=== PATIENT | male | born 1940 | race Hispanic/Latino ===

== ENCOUNTER 2021-10-28 14:18 | Inpatient (IN) | payer MEDICARE ==
[~2021-10-28] VITALS: Ht 172.7 cm; Wt 88.0 kg
[~2021-10-28 14:18] MED LIST: CIPRO500 MG PO; LOMOTIL TABLET1 EACH PO; METRONIDAZOLE500 MG PO
[2021-10-28] MEDS ORDERED: SODIUM CHLORIDE 0.9% 1000ML 1,000 ML IV STA (14:41)
[2021-10-28] MEDS ORDERED: SODIUM CHLORIDE 0.9% 1000ML 1,000 ML ONE (15:27)
[2021-10-28] MEDS ORDERED: ZOLPIDEM TARTRATE 5 MG TAB PO PRN (16:15)
[2021-10-28] MEDS ORDERED: DIPHENHYDRAMINE HCL INJ 50 MG/ML VIAL IV PRN (16:15)
[2021-10-28] MEDS ORDERED: CLONIDINE HCL 0.1 MG TAB PO PRN (16:15)
[2021-10-28] MEDS ORDERED: ACETAMINOPHEN 325 MG TAB PO PRN (16:15)
[2021-10-28] MEDS ORDERED: HYDRALAZINE HCL 20 MG/ML VIAL IV PRN (16:15)
[2021-10-28 17:06] VITALS: BP 188/80
[2021-10-28] MEDS: FAMOTIDINE 20 MG TAB PO SCH (17:53)
[2021-10-28] MEDS: SODIUM CHLORIDE 0.9% 1000ML 1,000 ML IV SCH (17:53)
[2021-10-28] MEDS ORDERED: TRAZODONE HCL50 MG PO ×2 (18:28→20:13)
[2021-10-28] MEDS ORDERED: NITROGLYCERIN0.4 MG SL ×2 (18:28→20:13)
[2021-10-28] MEDS ORDERED: CLOPIDOGREL75 MG PO ×2 (18:28→20:13)
[2021-10-28] MEDS ORDERED: NEXIUM40 MG PO ×2 (18:28→20:13)
[2021-10-28] MEDS ORDERED: [UNRECOGNIZED DRUG - OTHER] PO (18:28)
[2021-10-28] MEDS ORDERED: CRESTOR10 MG PO ×2 (18:28→20:13)
[2021-10-28] MEDS ORDERED: TROSPIUM CHLORI60 MG PO (18:28)
[2021-10-28] MEDS ORDERED: AMLODIPINE BESY10 MG PO ×2 (18:28→20:13)
[2021-10-28 19:30] VITALS: BP 144/67
[2021-10-28] MEDS ORDERED: METRONIDAZOLE500 MG PO (20:13)
[2021-10-28] MEDS ORDERED: TROSPIUM CHLORI60 MG (20:13)
[2021-10-28] MEDS ORDERED: ARICEPT5 MG PO (20:13)
[2021-10-28] MEDS ORDERED: CIPRO500 MG PO (20:13)
[2021-10-28] MEDS ORDERED: DIPHENOXYLATE-1 EACH PO (20:13)
[2021-10-28] MEDS: METRONIDAZOLE 500MG/NS 100ML 100 ML IV SCH (21:14)
[2021-10-28 23:42] VITALS: BP 144/67
[2021-10-29] VITALS (7 sets, daily range): BP systolic 135–149; BP diastolic 64–81
[2021-10-29] MEDS: SODIUM CHLORIDE 0.9% 1000ML 1,000 ML IV SCH ×2 (01:15→09:04)
[2021-10-29] MEDS: METRONIDAZOLE 500MG/NS 100ML 100 ML IV SCH ×3 (05:21→22:50)
[2021-10-29 07:10] LABS: BASOPHILS % 0.4 % (0.0-1.0); EOSINOPHILS # (AUTO) 0.3 (0.0-0.4); EOSINOPHILS % 3.6 % (0.0-6.0); HEMATOCRIT 42.5 % (38.2-49.6); HEMOGLOBIN 14.1 g/dL (14.0-18.0); LYMPHOCYTES # (AUTO) 1.3 (1.0-3.2); LYMPHOCYTES % 17.5 % (18.0-39.1); MEAN CORPUSCULAR HEMOGLOBIN 28.2 pg (28-32); MEAN CORPUSCULAR HGB CONC 33.2 g/dL (31-35); MONOCYTES # (AUTO) 0.7 (0.2-0.8); MONOCYTES % 9.9 % (4.4-11.3); NEUTROPHILS # (AUTO) 4.9 (2.1-6.9); NEUTROPHILS % 68.2 % (38.7-80.0); PLATELET COUNT 230 x10e3/uL (140-360); RED CELL DISTRIBUTION WIDTH 13.8 % (11.7-14.4)
[2021-10-29 07:41] LABS: ANION GAP 11.5 mmol/L (8-16); CALCIUM 7.7 mg/dL (8.4-10.2); CREATININE, SERUM 0.96 mg/dL (0.72-1.25); POTASSIUM 3.5 mmol/L (3.5-5.1)
[2021-10-29] MEDS: AMLODIPINE BESYLATE 10 MG TAB PO SCH (09:05)
[2021-10-29] MEDS: FAMOTIDINE 20 MG TAB PO SCH ×2 (09:05→16:54)
[2021-10-29] MEDS: SIMVASTATIN 20 MG TAB PO SCH (09:06)
[2021-10-29 17:38] LABS: MAGNESIUM 1.8 MG/DL (1.3-2.1); PHOSPHORUS 2.3 MG/DL (2.3-4.7)
[2021-10-29] MEDS ORDERED: POTASSIUM CHLORIDE 20 MEQ TAB CR PO ONE (17:45)
[2021-10-30] VITALS: BP 139/70
[2021-10-30 04:00] VITALS: BP 120/60
[2021-10-30] MEDS: METRONIDAZOLE 500MG/NS 100ML 100 ML IV SCH ×3 (05:39→21:32)
[2021-10-30 06:06] LABS: BASOPHILS % 0.3 % (0.0-1.0); EOSINOPHILS # (AUTO) 0.2 (0.0-0.4); EOSINOPHILS % 2.6 % (0.0-6.0); HEMATOCRIT 44.6 % (38.2-49.6); HEMOGLOBIN 14.8 g/dL (14.0-18.0); LYMPHOCYTES # (AUTO) 1.4 (1.0-3.2); LYMPHOCYTES % 15.4 % (18.0-39.1); MEAN CORPUSCULAR HGB CONC 33.2 g/dL (31-35); MEAN CORPUSCULAR VOLUME 84.3 fL (81-99); MONOCYTES # (AUTO) 0.8 (0.2-0.8); MONOCYTES % 9.1 % (4.4-11.3); NEUTROPHILS # (AUTO) 6.3 (2.1-6.9); NEUTROPHILS % 72.1 % (38.7-80.0); PLATELET COUNT 258 x10e3/uL (140-360); RED BLOOD COUNT 5.29 x10e6/uL (4.3-5.7); RED CELL DISTRIBUTION WIDTH 13.7 % (11.7-14.4)
[2021-10-30 06:46] LABS: ANION GAP 12.7 mmol/L (8-16); CALCIUM 8.2 mg/dL (8.4-10.2); CREATININE, SERUM 1.03 mg/dL (0.72-1.25); POTASSIUM 3.7 mmol/L (3.5-5.1)
[2021-10-30 08:57] VITALS: BP 117/81
[2021-10-30] MEDS: SIMVASTATIN 20 MG TAB PO SCH (09:20)
[2021-10-30] MEDS: AMLODIPINE BESYLATE 10 MG TAB PO SCH (09:22)
[2021-10-30] MEDS: FAMOTIDINE 20 MG TAB PO SCH ×2 (09:22→16:30)
[2021-10-30] MEDS ORDERED: D5.45%NS/KCL 20MEQ 1,000 ML IV ONE ×2 (11:15→17:30)
[2021-10-30 11:52] LABS: WBC,FECAL (FECAL LACTOFERRIN) POSITIVE (NEGATIVE)
[2021-10-30 12:26] VITALS: BP 151/68
[2021-10-30] MEDS ORDERED: NITROGLYCERIN 0.4 MG SUBL SL PRN (12:45)
[2021-10-30 17:54] VITALS: BP 150/73
[2021-10-30 20:00] VITALS: BP 115/72
[2021-10-30] MEDS: DONEPEZIL HCL 5 MG TAB PO SCH (21:32)
[2021-10-30] MEDS: TRAZODONE HCL 50 MG TAB PO SCH (21:32)
[2021-10-31] VITALS (9 sets, daily range): BP systolic 107–153; BP diastolic 43–72
[2021-10-31] MEDS ORDERED: DIPHENOXYLATE/ATROPINE TAB PO ONE (01:30)
[2021-10-31] MEDS: METRONIDAZOLE 500MG/NS 100ML 100 ML IV SCH ×3 (05:32→21:45)
[2021-10-31 05:39] LABS: BASOPHILS % 0.3 % (0.0-1.0); EOSINOPHILS # (AUTO) 0.3 (0.0-0.4); HEMATOCRIT 42.9 % (38.2-49.6); HEMOGLOBIN 14.2 g/dL (14.0-18.0); LYMPHOCYTES # (AUTO) 1.5 (1.0-3.2); LYMPHOCYTES % 16.6 % (18.0-39.1); MEAN CORPUSCULAR HEMOGLOBIN 27.7 pg (28-32); MEAN CORPUSCULAR HGB CONC 33.1 g/dL (31-35); MEAN CORPUSCULAR VOLUME 83.8 fL (81-99); MONOCYTES # (AUTO) 0.8 (0.2-0.8); NEUTROPHILS # (AUTO) 6.4 (2.1-6.9); NEUTROPHILS % 70.8 % (38.7-80.0); PLATELET COUNT 237 x10e3/uL (140-360); RED BLOOD COUNT 5.12 x10e6/uL (4.3-5.7); RED CELL DISTRIBUTION WIDTH 13.7 % (11.7-14.4)
[2021-10-31 06:02] LABS: ALBUMIN 3.1 g/dL (3.5-5.0); ANION GAP 10.4 mmol/L (8-16); CALCIUM 7.7 mg/dL (8.4-10.2); CREATININE, SERUM 0.89 mg/dL (0.72-1.25); MAGNESIUM 1.9 MG/DL (1.3-2.1); PHOSPHORUS 3.2 MG/DL (2.3-4.7); POTASSIUM 3.4 mmol/L (3.5-5.1)
[2021-10-31] MEDS: FAMOTIDINE 20 MG TAB PO SCH ×2 (07:15→16:20)
[2021-10-31] MEDS: TROSPIUM CHLORIDE PO SCH (09:21)
[2021-10-31] MEDS: AMLODIPINE BESYLATE 10 MG TAB PO SCH (09:21)
[2021-10-31] MEDS: ONDANSETRON HCL INJ 2MG/ML 2ML 2 MG/ML VIAL IV PRN (10:05)
[2021-10-31] MEDS ORDERED: CALCIUM GLUC 1 G/50 ML NACL 50 ML IV ONE (13:00)
[2021-10-31] MEDS ORDERED: POTASSIUM CHLORIDE 20 MEQ TAB CR PO ONE (13:00)
[2021-10-31] MEDS: DONEPEZIL HCL 5 MG TAB PO SCH (21:45)
[2021-10-31] MEDS: TRAZODONE HCL 50 MG TAB PO SCH (21:45)
[2021-10-31] MEDS: SIMVASTATIN 20 MG TAB PO SCH (21:45)
[2021-10-31] MEDS ORDERED: BISACODYL 5 MG TAB EC PO ONE (23:45)
[2021-11-01] VITALS (8 sets, daily range): BP systolic 101–151; BP diastolic 55–81
[2021-11-01] MEDS ORDERED: BISACODYL 5 MG TAB EC PO ONE (00:15)
[2021-11-01] MEDS ORDERED: CITRATE OF MAGNESIA 300ML BOTTLE PO ONE ×2 (01:15→07:00)
[2021-11-01 05:45] LABS: BASOPHILS % 0.3 % (0.0-1.0); EOSINOPHILS # (AUTO) 0.2 (0.0-0.4); EOSINOPHILS % 2.4 % (0.0-6.0); HEMATOCRIT 44.4 % (38.2-49.6); HEMOGLOBIN 14.2 g/dL (14.0-18.0); LYMPHOCYTES # (AUTO) 1.3 (1.0-3.2); LYMPHOCYTES % 14.1 % (18.0-39.1); MEAN CORPUSCULAR HEMOGLOBIN 27.9 pg (28-32); MEAN CORPUSCULAR VOLUME 87.2 fL (81-99); MONOCYTES # (AUTO) 0.8 (0.2-0.8); MONOCYTES % 8.1 % (4.4-11.3); NEUTROPHILS # (AUTO) 6.9 (2.1-6.9); NEUTROPHILS % 74.5 % (38.7-80.0); PLATELET COUNT 245 x10e3/uL (140-360); RED BLOOD COUNT 5.09 x10e6/uL (4.3-5.7); RED CELL DISTRIBUTION WIDTH 13.8 % (11.7-14.4)
[2021-11-01] MEDS: METRONIDAZOLE 500MG/NS 100ML 100 ML IV SCH ×3 (06:21→21:35)
[2021-11-01 06:22] LABS: ANION GAP 8.6 mmol/L (8-16); CALCIUM 8.6 mg/dL (8.4-10.2); CREATININE, SERUM 1.01 mg/dL (0.72-1.25); POTASSIUM 3.6 mmol/L (3.5-5.1)
[2021-11-01] MEDS: FAMOTIDINE 20 MG TAB PO SCH ×2 (09:16→16:30)
[2021-11-01] MEDS: AMLODIPINE BESYLATE 10 MG TAB PO SCH (09:17)
[2021-11-01] MEDS: ONDANSETRON HCL INJ 2MG/ML 2ML 2 MG/ML VIAL IV PRN (09:27)
[2021-11-01] MEDS: TROSPIUM CHLORIDE PO SCH (11:53)
[2021-11-01] MEDS ORDERED: FENTANYL CITRATE/PF 100MCG/2 ML INJ ONE (13:23)
[2021-11-01] MEDS ORDERED: HYOSCYAMINE SULFATE 0.5 MG/ML INJ ONE (13:42)
[2021-11-01] MEDS ORDERED: LIDOCAINE HCL 2% LOCAL INJ 5 ML SDV VIAL INJ ONE (13:42)
[2021-11-01] MEDS ORDERED: PROPOFOL IV EMULSION 10 MG/ML 20 ML VIAL ONE (13:42)
[2021-11-01] MEDS: SODIUM CHLORIDE 0.9% 1000ML 1,000 ML IV SCH (17:09)
[2021-11-01 19:07] LABS: WBC,FECAL (FECAL LACTOFERRIN) POSITIVE (NEGATIVE)
[2021-11-01] MEDS ORDERED: CHOLESTYRAMINE 4 GM PACKET PO SCH (19:30)
[2021-11-01] MEDS: SIMVASTATIN 20 MG TAB PO SCH (21:35)
[2021-11-01] MEDS: TRAZODONE HCL 50 MG TAB PO SCH (21:35)
[2021-11-01] MEDS: DONEPEZIL HCL 5 MG TAB PO SCH (21:35)
[2021-11-02] VITALS (8 sets, daily range): BP systolic 102–142; BP diastolic 59–82
[2021-11-02] MEDS: SODIUM CHLORIDE 0.9% 1000ML 1,000 ML IV SCH ×3 (05:22→21:05)
[2021-11-02] MEDS: METRONIDAZOLE 500MG/NS 100ML 100 ML IV SCH ×2 (05:23→13:55)
[2021-11-02 06:20] LABS: ANION GAP 10.5 mmol/L (8-16); CALCIUM 8.2 mg/dL (8.4-10.2); CREATININE, SERUM 1.02 mg/dL (0.72-1.25); POTASSIUM 3.5 mmol/L (3.5-5.1)
[2021-11-02] MEDS: FAMOTIDINE 20 MG TAB PO SCH (08:27)
[2021-11-02] MEDS: AMLODIPINE BESYLATE 10 MG TAB PO SCH (08:28)
[2021-11-02] MEDS: ONDANSETRON HCL INJ 2MG/ML 2ML 2 MG/ML VIAL IV PRN (08:29)
[2021-11-02] MEDS: TROSPIUM CHLORIDE PO SCH (08:33)
[2021-11-02] MEDS ORDERED: CHOLESTYRAMINE 4 GM PACKET PO SCH (09:00)
[2021-11-02] MEDS ORDERED: DIPHENOXYLATE/ATROPINE TAB PO ONE (13:00)
[2021-11-02] MEDS: CHOLESTYRAMINE 4 GM PACKET PO SCH ×2 (13:55→20:56)
[2021-11-02] MEDS: SIMVASTATIN 20 MG TAB PO SCH (20:56)
[2021-11-02] MEDS: DONEPEZIL HCL 5 MG TAB PO SCH (20:56)
[2021-11-02] MEDS: TRAZODONE HCL 50 MG TAB PO SCH (20:56)
[2021-11-03] VITALS: BP_SYST 139; BP_SYST 152; BP_DIAS 60; BP_DIAS 71
[2021-11-03] MEDS ORDERED: DIPHENOXYLATE/ATROPINE TAB PO STA (00:24)
[2021-11-03] MEDS ORDERED: DIPHENOXYLATE/ATROPINE TAB PO ONE (01:15)
[2021-11-03 04:00] VITALS: BP 119/73
[2021-11-03 06:37] LABS: BASOPHILS % 0.3 % (0.0-1.0); EOSINOPHILS # (AUTO) 0.3 (0.0-0.4); EOSINOPHILS % 3.4 % (0.0-6.0); HEMATOCRIT 41.9 % (38.2-49.6); HEMOGLOBIN 13.5 g/dL (14.0-18.0); LYMPHOCYTES # (AUTO) 1.4 (1.0-3.2); LYMPHOCYTES % 19.3 % (18.0-39.1); MEAN CORPUSCULAR HEMOGLOBIN 27.8 pg (28-32); MEAN CORPUSCULAR HGB CONC 32.2 g/dL (31-35); MEAN CORPUSCULAR VOLUME 86.2 fL (81-99); MONOCYTES # (AUTO) 0.6 (0.2-0.8); MONOCYTES % 8.5 % (4.4-11.3); NEUTROPHILS % 68.4 % (38.7-80.0); PLATELET COUNT 228 x10e3/uL (140-360); RED BLOOD COUNT 4.86 x10e6/uL (4.3-5.7)
[2021-11-03 06:52] LABS: ANION GAP 7.5 mmol/L (8-16); CALCIUM 7.9 mg/dL (8.4-10.2); CREATININE, SERUM 0.95 mg/dL (0.72-1.25); POTASSIUM 3.5 mmol/L (3.5-5.1)
[2021-11-03] MEDS ORDERED: PANTOPRAZOLE SOD 40 MG TABEC PO SCH (07:30)
[2021-11-03 08:05] VITALS: BP 113/60
[2021-11-03] MEDS: AMLODIPINE BESYLATE 10 MG TAB PO SCH (08:57)
[2021-11-03] MEDS: CHOLESTYRAMINE 4 GM PACKET PO SCH (08:57)
[2021-11-03] MEDS: TROSPIUM CHLORIDE PO SCH (09:00)
[2021-11-03] MEDS ORDERED: DIPHENOXYLATE/ATROPINE TAB PO SCH (09:00)
[2021-11-03 09:11] VITALS: BP 113/60
[2021-11-03 12:03] VITALS: BP 149/74
[2021-11-03] MEDS ORDERED: CHOLESTYRAMINE L4 GM PO (13:56)
== END 2021-11-03 14:24 | disposition home or self-care (01) | DRG 392 ==
LOC: FSED 14:46 → ERHOLD 14:52 → MED/SURG2 16:34 → OBSVTOIN 10-30 10:44
PROVIDERS: ADMIT Internal Medicine; ATTEND Internal Medicine
PROC: 0DBB8ZX Excision of Ileum, Via Natural or Artificial Opening Endoscopic, Diagnostic (ICD-10-PCS; 2021-11-01)
PROC: 0DBM8ZX Excision of Descending Colon, Via Natural or Artificial Opening Endoscopic, Diagnostic (ICD-10-PCS; principal; 2021-11-01 17:47)
PROC: 0DBE8ZX Excision of Large Intestine, Via Natural or Artificial Opening Endoscopic, Diagnostic (ICD-10-PCS; 2021-11-01 17:47)
PROC: 0DBL8ZX Excision of Transverse Colon, Via Natural or Artificial Opening Endoscopic, Diagnostic (ICD-10-PCS; 2021-11-01 17:47)
DX: K57.30 Diverticulosis of large intestine without perforation or abscess without bleeding (principal); K52.9 Noninfective gastroenteritis and colitis, unspecified; D12.4 Benign neoplasm of descending colon; D12.3 Benign neoplasm of transverse colon; K62.89 Other specified diseases of anus and rectum; K64.8 Other hemorrhoids; E86.0 Dehydration; I10 Essential (primary) hypertension; K21.9 Gastro-esophageal reflux disease without esophagitis; E78.5 Hyperlipidemia, unspecified; E87.6 Hypokalemia; Z72.89 Other problems related to lifestyle; Z20.822 Contact with and (suspected) exposure to COVID-19
CPT/HCPCS: 36415; 45378; 45384; 45385; 80048; 80053; 82270; 82553; 82948; 83630; 83735; 83993; 84100; 84484; 85025; 87045; 87177; 87324; 87328; 87449; 87493; 88305; 96360; 96361; 99251; 99284; G0378; J1980; J2001; J2405; J3010; J7030

== ENCOUNTER 2024-06-19 09:19 | Emergency (ER) | payer MEDICARE ==
[~2024-06-19] VITALS: Ht 172.7 cm; Wt 92.5 kg
[~2024-06-19 09:19] MED LIST changes: +AMLODIPINE BESY10 MG PO; +ARICEPT5 MG PO; +CHOLESTYRAMINE L4 GM PO; +CLOPIDOGREL75 MG PO; +CRESTOR10 MG PO; +DIPHENOXYLATE-1 EACH PO; +NEXIUM40 MG PO; +NITROGLYCERIN0.4 MG SL; +TRAZODONE HCL50 MG PO; +TROSPIUM CHLORI60 MG; +TROSPIUM CHLORI60 MG PO; +[UNRECOGNIZED DRUG - OTHER] PO
[2024-06-19 09:23] VITALS: PULSE 59; RESP 24; TEMP 98
[2024-06-19] MEDS ORDERED: LIDOCAINE HCL 2% LOCAL 20 ML VIAL ONE (09:37)
[2024-06-19] MEDS ORDERED: LIDOCAINE HCL 1% 30ML-PF VIAL ONE (09:37)
[2024-06-19] MEDS: LIDOCAINE HCL 1% LOCAL INJ 20 ML VIAL INJ ONE (10:05)
[2024-06-19] MEDS: TETANUS/DIPHTHERIA TOX ADULT 0.5 ML SYR IM ONE (10:53)
[2024-06-19 11:06] VITALS: BP 189/74; PULSE 56; RESP 20; TEMP 97.7; O2SAT 96
== END 2024-06-19 11:05 | disposition home or self-care (01) ==
LOC: FSED 09:24
DX: S01.81XA Laceration without foreign body of other part of head, initial encounter (principal); W01.0XXA Fall on same level from slipping, tripping and stumbling without subsequent striking against object, initial encounter; Y93.01 Activity, walking, marching and hiking; Y92.89 Other specified places as the place of occurrence of the external cause; I10 Essential (primary) hypertension; E78.5 Hyperlipidemia, unspecified; I25.10 Atherosclerotic heart disease of native coronary artery without angina pectoris; I48.91 Unspecified atrial fibrillation; K21.9 Gastro-esophageal reflux disease without esophagitis; J45.909 Unspecified asthma, uncomplicated; I25.2 Old myocardial infarction; F32.A Depression, unspecified
CPT/HCPCS: 12011; 70450; 72125; 90471; 90714; 99284; J2003

== ENCOUNTER 2024-06-25 13:23 | Emergency (ER) | payer MEDICARE ==
[~2024-06-25] VITALS: Ht 172.7 cm; Wt 93.9 kg
[2024-06-25 13:30] VITALS: PULSE 54; RESP 22; TEMP 98.2
[2024-06-25 13:46] VITALS: BP 153/69; PULSE 54; RESP 22; O2SAT 97
== END 2024-06-25 13:46 | disposition home or self-care (01) ==
LOC: FSED 13:27
DX: Z48.02 Encounter for removal of sutures (principal)
CPT/HCPCS: 99282; S0630